=== PATIENT | male | born 1955 | race Caucasian/White ===

== ENCOUNTER → 2018-02-27 | Outpatient (CLI) | payer MEDICARE | END | disposition home or self-care (01) | LOC: RAD 12:49 | PROVIDERS: ATTEND Nurse Practitioner | DX: M51.36 Other intervertebral disc degeneration, lumbar region (principal); M54.2 Cervicalgia | CPT/HCPCS: 72040; 72120 ==

== ENCOUNTER → 2018-04-13 | Outpatient (CLI) | payer MEDICARE | END | disposition home or self-care (01) | LOC: CFH 15:43 | PROVIDERS: ATTEND Nurse Practitioner | DX: M51.36 Other intervertebral disc degeneration, lumbar region (principal); M50.220 Other cervical disc displacement, mid-cervical region, unspecified level; M12.88 Other specific arthropathies, not elsewhere classified, other specified site | CPT/HCPCS: 72141; 72148 ==

== ENCOUNTER → 2018-06-13 | Outpatient (CLI) | payer MEDICARE | END | disposition home or self-care (01) | LOC: CFH 12:17 | PROVIDERS: ATTEND Nurse Practitioner | DX: M25.512 Pain in left shoulder (principal) ==

== ENCOUNTER → 2018-07-11 | Outpatient (CLI) | payer MEDICARE | END | disposition home or self-care (01) | LOC: CFH 08:43 | PROVIDERS: ATTEND Internal Medicine Cardiovascular Disease | DX: R00.2 Palpitations (principal); I10 Essential (primary) hypertension; R07.9 Chest pain, unspecified; R06.02 Shortness of breath; F17.210 Nicotine dependence, cigarettes, uncomplicated | CPT/HCPCS: 93306 ==

== ENCOUNTER 2018-09-13 09:27 | Day surgery (SDC) | payer MEDICARE ==
[~2018-09-13] VITALS: Ht 180.3 cm; Wt 93.0 kg
[~2018-09-13 09:27] MED LIST: CLON1TAB11 PO; LEVO25TA4 PO; OMEP20TA62 PO; OXYC10TA6 PO; PARO30TA45 PO
[2018-09-13] MEDS ORDERED: LACTATED RINGERS 1,000 ML IV SCH (09:55)
[2018-09-13 10:08] VITALS: BP 135/82
[2018-09-13] MEDS ORDERED: FENTANYL PF 100 MCG/2ML ONE ×4 (10:24→11:26)
[2018-09-13] MEDS ORDERED: MIDAZOLAM 1 MG/ML, 2ML ONE (10:24)
[2018-09-13] MEDS ORDERED: PROPOFOL 50 ML ONE (10:25)
[2018-09-13] MEDS ORDERED: LABETALOL 5MG/ML, 20ML IV PRN (11:00)
[2018-09-13] MEDS ORDERED: HALOPERIDOL 5 MG/ML IV PRN (11:00)
[2018-09-13] MEDS ORDERED: hydrALAzine 20 MG/ML, 1ML IV PRN (11:00)
[2018-09-13] MEDS ORDERED: OXYcodone 5 MG/5 ML ORAL.SOL UDC PO PRN (11:00)
[2018-09-13] MEDS ORDERED: LORazepam 2 MG/ML, 1ML IVPush PRN (11:00)
[2018-09-13] MEDS ORDERED: ONDANSETRON 2MG/ML, 2ML IV PRN (11:00)
[2018-09-13] MEDS ORDERED: HYDROmorphone 2 MG/ML, 1ML IVPush PRN (11:00)
[2018-09-13] MEDS ORDERED: MEPERIDINE/PF 25MG/0.5ML IVPush PRN (11:00)
[2018-09-13] MEDS ORDERED: OXYcodone 5 MG/5 ML ORAL.SOL UDC ONE (11:12)
[2018-09-13] MEDS ORDERED: ACETAMINOPHEN 650 MG/20.3 ML UDC ONE (11:12)
[2018-09-13] MEDS: FENTANYL PF 100 MCG/2ML IV PRN ×2 (11:14→11:20)
== END 2018-09-13 15:10 | disposition home or self-care (01) ==
LOC: OUT 09:27
PROVIDERS: ATTEND Internal Medicine Gastroenterology
DX: K22.710 Barrett's esophagus with low grade dysplasia (principal); K21.9 Gastro-esophageal reflux disease without esophagitis; E03.9 Hypothyroidism, unspecified; F17.200 Nicotine dependence, unspecified, uncomplicated
CPT/HCPCS: 43270; 93005; J2250; J2704; J3010; J7120

== ENCOUNTER 2018-12-06 09:03 | Day surgery (SDC) | payer MEDICARE ==
[~2018-12-06] VITALS: Ht 180.3 cm; Wt 88.0 kg
[2018-12-06 09:24] VITALS: BP 117/76
[2018-12-06] MEDS ORDERED: LACTATED RINGERS 1,000 ML IV SCH (09:27)
[2018-12-06] MEDS ORDERED: ACETAMINOPHEN 325 MG TABLET PO PRN (09:30)
[2018-12-06] MEDS ORDERED: ALBUTEROL/IPRATROPIUM 2.5MG/0.5MG, 3 ML NPPB PRN (09:30)
[2018-12-06] MEDS ORDERED: LABETALOL 5MG/ML, 20ML IV PRN (09:30)
[2018-12-06] MEDS ORDERED: ONDANSETRON 2MG/ML, 2ML IV PRN (09:30)
[2018-12-06] MEDS ORDERED: PLEASE ENTER HEIGHT AND WEIGHT MC SCH (09:30)
[2018-12-06] MEDS ORDERED: PROPOFOL 10 MG/ML, 20ML ONE (09:51)
[2018-12-06] MEDS ORDERED: FENTANYL PF 100 MCG/2ML ONE ×2 (10:28→11:38)
[2018-12-06] MEDS ORDERED: MIDAZOLAM 1 MG/ML, 2ML ONE (10:28)
[2018-12-06] MEDS: FENTANYL PF 100 MCG/2ML IV PRN ×2 (10:31→10:43)
[2018-12-06] MEDS: MIDAZOLAM 1 MG/ML, 2ML IV PRN ×2 (10:31→10:44)
[2018-12-06] MEDS ORDERED: FAMOTIDINE 20 MG/2 ML ONE (10:37)
[2018-12-06] MEDS ORDERED: ONDANSETRON 2MG/ML, 2ML ONE (10:37)
[2018-12-06] MEDS ORDERED: FAMOTIDINE 20 MG/2 ML IVPush ONE (11:00)
== END 2018-12-06 12:15 | disposition home or self-care (01) ==
LOC: OUT 09:03
PROVIDERS: ATTEND Internal Medicine Gastroenterology
DX: K22.70 Barrett's esophagus without dysplasia (principal); J44.9 Chronic obstructive pulmonary disease, unspecified; F31.9 Bipolar disorder, unspecified; E03.9 Hypothyroidism, unspecified; K21.9 Gastro-esophageal reflux disease without esophagitis
CPT/HCPCS: 43270; J2250; J2405; J2704; J3010; J3490; J7120

== ENCOUNTER 2019-08-28 08:08 | Outpatient (CLI) | payer MEDICARE | END 2019-08-28 23:59 | disposition home or self-care (01) | LOC: CFH 08:08 | PROVIDERS: ATTEND Internal Medicine Gastroenterology | DX: K76.0 Fatty (change of) liver, not elsewhere classified (principal); K22.710 Barrett's esophagus with low grade dysplasia; K21.9 Gastro-esophageal reflux disease without esophagitis; K74.0 Hepatic fibrosis; R10.13 Epigastric pain; R11.0 Nausea; F31.9 Bipolar disorder, unspecified; F11.20 Opioid dependence, uncomplicated; J44.9 Chronic obstructive pulmonary disease, unspecified; Z85.828 Personal history of other malignant neoplasm of skin; F17.200 Nicotine dependence, unspecified, uncomplicated | CPT/HCPCS: 76705 ==

== ENCOUNTER 2019-12-04 06:26 | Day surgery (SDC) | payer MEDICARE ==
[~2019-12-04] VITALS: Ht 180.3 cm; Wt 97.5 kg
[2019-12-04] MEDS ORDERED: LACTATED RINGERS 1,000 ML IV SCH (07:42)
[2019-12-04 07:49] VITALS: BP 123/75
[2019-12-04 07:56] VITALS: BP 123/75
[2019-12-04] MEDS ORDERED: PROPOFOL 10 MG/ML, 20ML ONE ×2 (09:29)
[2019-12-04] MEDS ORDERED: FENTANYL PF 100 MCG/2ML ONE (10:41)
[2019-12-04] MEDS ORDERED: ONDANSETRON 2MG/ML, 2ML IV PRN (11:00)
[2019-12-04] MEDS ORDERED: FENTANYL PF 100 MCG/2ML IV PRN (11:00)
== END 2019-12-04 11:55 | disposition home or self-care (01) ==
LOC: OUT 06:26
PROVIDERS: ATTEND Internal Medicine Gastroenterology
DX: K22.70 Barrett's esophagus without dysplasia (principal); F41.9 Anxiety disorder, unspecified; J44.9 Chronic obstructive pulmonary disease, unspecified; F17.210 Nicotine dependence, cigarettes, uncomplicated; Z85.828 Personal history of other malignant neoplasm of skin
CPT/HCPCS: 43270; 93005; J2704; J3010

== ENCOUNTER → 2020-08-03 | Outpatient (CLI) | payer MEDICARE ==
[~2020-08-03] MED LIST changes: +OMNIPAQUE 350 MG/ML, 100ML BOTTLE ONE
== END | disposition home or self-care (01) ==
LOC: CFH 07:43
PROVIDERS: ATTEND Internal Medicine Gastroenterology
DX: I77.810 Thoracic aortic ectasia (principal); M51.34 Other intervertebral disc degeneration, thoracic region; K21.9 Gastro-esophageal reflux disease without esophagitis; R04.2 Hemoptysis; R11.0 Nausea; K74.00 Hepatic fibrosis, unspecified; J98.4 Other disorders of lung
CPT/HCPCS: 71275; 76700; 82565; Q9967

== ENCOUNTER 2020-09-02 06:11 | Day surgery (SDC) | payer MEDICARE ==
[~2020-09-02] VITALS: Ht 180.3 cm; Wt 99.3 kg
[~2020-09-02 06:11] MED LIST changes: +MULT-449 PO; -OMNIPAQUE 350 MG/ML, 100ML BOTTLE ONE; +PROM25TA10 PO; +TAMS-11 PO; +TRAZ-175 PO; +VITA1CAP PO
[2020-09-02] MEDS ORDERED: CHLORHEXIDINE 15 ML UDC MM ONE (07:00)
[2020-09-02] MEDS ORDERED: LACTATED RINGERS 1,000 ML IV SCH (07:00)
[2020-09-02 07:01] VITALS: BP 119/75
[2020-09-02] MEDS ORDERED: PROPOFOL 50 ML ONE (07:59)
[2020-09-02] MEDS ORDERED: OXYcodone 5 MG/5 ML ORAL.SOL UDC PO PRN (10:00)
[2020-09-02] MEDS ORDERED: ONDANSETRON 2MG/ML, 2ML IVPush ONE (10:00)
== END 2020-09-02 12:10 | disposition home or self-care (01) ==
LOC: OUT 06:11
PROVIDERS: ATTEND Internal Medicine Gastroenterology
DX: K22.710 Barrett's esophagus with low grade dysplasia (principal); K21.9 Gastro-esophageal reflux disease without esophagitis; E03.9 Hypothyroidism, unspecified; G47.33 Obstructive sleep apnea (adult) (pediatric); B19.20 Unspecified viral hepatitis C without hepatic coma; F41.9 Anxiety disorder, unspecified; Z20.828 Contact with and (suspected) exposure to other viral communicable diseases
CPT/HCPCS: 43270; 87635; 93005; J2704; J7120

== ENCOUNTER 2020-12-31 06:00 | Day surgery (SDC) | payer MEDICARE ==
[~2020-12-31] VITALS: Ht 180.3 cm; Wt 95.9 kg
[2020-12-31] MEDS ORDERED: CHLORHEXIDINE 15 ML UDC PO ONE (07:00)
[2020-12-31] MEDS ORDERED: LACTATED RINGERS 1,000 ML IV SCH (07:00)
[2020-12-31] MEDS ORDERED: ONDA4TAB13 SL (07:06)
[2020-12-31] MEDS ORDERED: VRAYLAR PO (07:06)
[2020-12-31] MEDS ORDERED: MELA1TAB15 PO (07:06)
[2020-12-31 07:25] VITALS: BP 143/77
[2020-12-31] MEDS ORDERED: hydrALAzine 20 MG/ML, 1ML IV PRN (08:00)
[2020-12-31] MEDS ORDERED: ONDANSETRON 2MG/ML, 2ML IVPush PRN (08:00)
[2020-12-31] MEDS ORDERED: LABETALOL 5MG/ML, 20ML IV PRN (08:00)
[2020-12-31] MEDS ORDERED: HYDROmorphone 1 MG/ML, 1ML INJ IVPush PRN (08:00)
[2020-12-31] MEDS ORDERED: ACETAMINOPHEN 325 MG TABLET PO PRN (08:00)
[2020-12-31] MEDS ORDERED: PROMETHAZINE 25 MG/ML, 1ML IVPush PRN (08:00)
[2020-12-31] MEDS ORDERED: OXYcodone 5 MG/5 ML ORAL.SOL UDC PO PRN (08:00)
[2020-12-31] MEDS ORDERED: LORazepam 2 MG/ML, 1ML IVPush PRN (08:00)
[2020-12-31] MEDS ORDERED: EPHEDRINE 50 MG/ML, 1ML IVPush PRN (08:00)
[2020-12-31] MEDS ORDERED: METHOCARBAMOL 1,000 MG in DEXTROSE 5% 100 ML IV PRN (08:00)
[2020-12-31] MEDS ORDERED: FENTANYL PF 100 MCG/2ML IV PRN (08:00)
[2020-12-31] MEDS ORDERED: FENTANYL PF 100 MCG/2ML ONE (08:07)
[2020-12-31] MEDS ORDERED: PROPOFOL 50 ML ONE ×2 (08:09→08:12)
[2020-12-31] MEDS ORDERED: OXYcodone 5 MG/5 ML ORAL.SOL UDC ONE (08:38)
[2020-12-31] MEDS ORDERED: ACETAMINOPHEN 650 MG/20.3 ML UDC ONE ×2 (08:38→08:39)
[2020-12-31] MEDS ORDERED: PROMETHAZINE 25 MG/ML, 1ML ONE (08:44)
== END 2020-12-31 10:20 | disposition home or self-care (01) ==
LOC: OUT 06:00
PROVIDERS: ATTEND Internal Medicine Gastroenterology
DX: K22.710 Barrett's esophagus with low grade dysplasia (principal); K44.9 Diaphragmatic hernia without obstruction or gangrene; K21.9 Gastro-esophageal reflux disease without esophagitis; F17.210 Nicotine dependence, cigarettes, uncomplicated; Z79.899 Other long term (current) drug therapy; Z20.822 Contact with and (suspected) exposure to COVID-19
CPT/HCPCS: 43239; 43270; 87635; 88305; 93005; J2704; J3010; J7120

== ENCOUNTER → 2021-02-01 | Outpatient (CLI) | payer MEDICARE ==
[~2021-02-01] MED LIST changes: +MELA1TAB15 PO; +ONDA4TAB13 SL; +VRAYLAR PO
== END | disposition home or self-care (01) ==
LOC: RAD 09:27
PROVIDERS: ATTEND Internal Medicine Gastroenterology
DX: K74.00 Hepatic fibrosis, unspecified (principal)
CPT/HCPCS: 76700